=== PATIENT | male | born 1985 | race Two or more races ===

== ENCOUNTER 2022-07-08 13:00 | Emergency (ER) | payer SELFPAY ==
[2022-07-08 13:09] VITALS: BP 136/90; PULSE 98; RESP 18; TEMP 98.9; BMI 33.6
[2022-07-08] MEDS ORDERED: LIDOCAINE 5% TOPICAL PATCH TP ONE (14:07)
[2022-07-08] MEDS ORDERED: KETOROLAC TROMETHAMINE 15 MG/ML VIAL IM ONE (14:07)
[2022-07-08] MEDS ORDERED: ACETAMINOPHEN 325 MG TABLET (FP) PO ONE (14:07)
[2022-07-08] MEDS ORDERED: LIDOCAINE 5% TOPICAL PATCH ONE (14:21)
[2022-07-08] MEDS ORDERED: ACETAMINOPHEN 325 MG TABLET (FP) ONE (14:21)
[2022-07-08] MEDS ORDERED: KETOROLAC TROMETHAMINE 15 MG/ML VIAL ONE (14:21)
[2022-07-08] MEDS ORDERED: LIDOCAINE PATCH REMOVAL MC ONE (22:00)
== END 2022-07-08 14:58 | disposition home or self-care (01) ==
LOC: JERFT 13:00 → JER 13:00 → EDBD 13:00 → JERFT 14:58
PROC: 3E0233Z Introduction of Anti-inflammatory into Muscle, Percutaneous Approach (ICD-10-PCS; principal; 2022-07-08)
DX: M54.32 Sciatica, left side (principal)
CPT/HCPCS: 99284-25